=== PATIENT | female | born 1955 | race Caucasian/White ===

== ENCOUNTER → 2022-09-14 12:38 | Outpatient (BNVA) | payer MEDICARE, SELFPAY | PROVIDERS: Family Provider Emergency Medicine; Visit Provider Internal Medicine Cardiovascular Disease | DX: R00.2 Palpitations (principal) | CPT/HCPCS: 93270 ==

== ENCOUNTER → 2022-10-15 12:35 | Outpatient (BNVA) | payer BC, SELFPAY | PROVIDERS: Family Provider Emergency Medicine; PCP Nurse Practitioner Family; Visit Provider Internal Medicine Cardiovascular Disease | DX: N18.9 Chronic kidney disease, unspecified (principal); Z79.01 Long term (current) use of anticoagulants; R53.1 Weakness; I48.0 Paroxysmal atrial fibrillation; I48.91 Unspecified atrial fibrillation; R00.0 Tachycardia, unspecified; I10 Essential (primary) hypertension; E78.5 Hyperlipidemia, unspecified; F17.200 Nicotine dependence, unspecified, uncomplicated | CPT/HCPCS: 36415; 80053; 84443; 85025; 85610 ==

== ENCOUNTER 2023-02-22 08:40 | Outpatient (CLI) | payer BC, SELFPAY ==
--- NOTE | 2023-02-22 | ECG_ITS ---
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 Interpretive Statements NAME OF STUDY: EXERCISE SESTAMIBI STRESS TEST INDICATION: Shortness of Breath, PROCEDURE: The baseline electrocardiogram showed normal sinus rhythm with normal ST-Ts poor R wave progression. At the baseline, the patient's blood pressure was 147/94 mm Hg with a heart rate of 97. The patient exercised for 4 minutes and 30 seconds on a standard Ryan protocol. Patient attained a maximum heart rate of 140 beats per minute(95% of the maximum predicted heart rate) with a blood pressure at the peak exercise of 200/74 mm Hg. The EKG at the peak exercise revealed no significant changes. Patient did not have any chest pain or any significant arrhythmis with the exercise Sestamibi was injected 1 minute prior to the peak exercise During the recovery phase, there were no new changes. Blood pressure at the end of the recovery phase was 176/69 mm Hg with a heart rate of 96 per minute. CONCLUSION: 1. No significant EKG changes with the [treadmill exercise 2. No exercise-induced chest pain or cardiac arrhythmia 3. Impaired exercise tolerance, attained a maximum of 7.0 METs 4. Sestamibi/Sestamibi perfusion results pending; see separate report. Electronically Signed On 02-28-2023 18:20:21 CDT by Travis Bird M.D. [id number]
[2023-02-22 10:00] VITALS: BMI 22.8
--- NOTE | 2023-02-22 10:01 | NMCV_ITS ---
NM karlo perf SPECT r/s* [id number] Ashley Albarran Age: 68 Gender: F : 1955 Exam Date: 02/22/2023 10:21 Ordering Phys: Travis Bird MD ([email or web address]) Technologist: ROSANA Greene Exam Location: [facility] Indications: CORONARY ANGIOPLASTY STATUS STRESS TEST Please see separate stress test report in [facility] for full findings IMAGE PROTOCOL Rest/Stress 1 Exercise Day Radiopharmaceutical Dose (mCi) Administration Site Administered by Rest: Tc-99m 10.8 IV ROSANA Deleon Sestamibi Stress:Tc-99m 32.5 IV ROSANA Deleon Sestamicandida Rest: 22-Feb-2023 60 Discovery 630 Stress: 22-Feb-2023 30 Discovery 630 Radiopharmaceutical was injected at 88 % maximum heart rate. Images obtained in supine and prone position. SPECT RESULTS Technical Quality: Excellent Raw Data Analysis: Normal Image Corrections: No attenuation or motion correction applied Summed Stress Score: 2 Summed Rest Score: 1 Summed Difference Score: 1 PERFUSION FINDINGS Small area of slightly decreased tracer uptake was noted in the apical lateral and LV apex. There are some reversibility with the supine imaging. But with the prone imaging, no reversible defects were noted FUNCTIONAL RESULTS (calculated via Gated SPECT) Stress Image LV EF (%): 75 Stress EDV (mL):48 TID: 0.9 Stress ESV (mL):12 FUNCTIONAL FINDINGS: Segmental wall motion analysis revealing no gross wall motion abnormalities IMPRESSIONS 1. Myocardial perfusion imaging revealing small area of slightly decreased tracer uptake in the apical lateral and in the LV apex with some inconsistent reversibility, most likely artifactual. 2. Normal LV ejection fraction of 75%. 3. LV wall motion analysis revealing no gross wall motion abnormalities. 4. Normal LV volume Low probability for coronary ischemia, based on the above findings. No similar previous studies are available for comparison Dr Travis Bird MD FACC (Electronically Signed) Final Date: 23 February 2023 09:37 S
[2023-02-22 11:08] VITALS: BP 176/69; PULSE 95
== END 2023-02-22 08:41 | disposition home or self-care (01) ==
LOC: CDL 08:44
PROVIDERS: Family Provider Emergency Medicine; PCP Nurse Practitioner Family; Visit Provider Internal Medicine Cardiovascular Disease
DX: R07.9 Chest pain, unspecified (principal)
CPT/HCPCS: 36415; 78452; 93017; A9500